=== PATIENT | male | born 1950 | race Two or more races ===

== ENCOUNTER 2019-12-22 09:45 | Inpatient (IN) | payer MEDICARE, OTHER ==
--- NOTE | 2019-12-18 14:34 | Diagnostic Imaging Report ---
Exam: CHEST 2 VIEWS Date: 12/18/2019 2:30 PM INDICATION: ^[id number] ^1416 ^PRE-OP Comparison: None FINDINGS: Lines/Tubes:None Lungs:The lungs are well inflated. No focal consolidation or pulmonary edema. Pleura:No pleural effusion. No pneumothorax. Heart/Mediastinum:The cardiomediastinal silhouette is normal in size and contour. Bones/Soft Tissues: No acute osseous abnormality. Mild multilevel degenerative changes of the spine are noted. Upper abdomen: Negative for free air underneath the hemidiaphragm.. IMPRESSION: Negative for acute intrathoracic process. Signed by: Curtis Saldaña MD on 12/18/2019 2:30 PM
[2019-12-18 14:42] LABS: BASOPHILS # (AUTO) 0.1 (0.0-0.1); BASOPHILS % 0.5 % (0.0-1.0); EOSINOPHILS # (AUTO) 0.5 (0.0-0.4); EOSINOPHILS % 4.5 % (0.0-6.0); HEMATOCRIT 39.1 % (38.2-49.6); HEMOGLOBIN 11.8 g/dL (14.0-18.0); LYMPHOCYTES # (AUTO) 3.2 (1.0-3.2); LYMPHOCYTES % 31.4 % (18.0-39.1); MEAN CORPUSCULAR HEMOGLOBIN 25.4 pg (28-32); MEAN CORPUSCULAR HGB CONC 30.2 g/dL (31-35); MEAN CORPUSCULAR VOLUME 84.1 fL (81-99); MONOCYTES # (AUTO) 0.6 (0.2-0.8); MONOCYTES % 5.8 % (4.4-11.3); NEUTROPHILS # (AUTO) 5.8 (2.1-6.9); NEUTROPHILS % 57.3 % (38.7-80.0); PLATELET COUNT 264 x10e3/uL (140-360); RED BLOOD COUNT 4.65 x10e6/uL (4.3-5.7); RED CELL DISTRIBUTION WIDTH 13.7 % (11.7-14.4)
[2019-12-18 14:59] LABS: ANION GAP 14.1 mmol/L (8-16); BLOOD UREA NITROGEN 20 mg/dL (7-26); BUN/CREATININE RATIO 17 (6-25); CALCIUM 9.1 mg/dL (8.4-10.2); CARBON DIOXIDE 26 mmol/L (22-29); CHLORIDE 102 mmol/L (98-107); CREATININE, SERUM 1.17 mg/dL (0.72-1.25); EST GLOMERULAR FILTRATION RATE > 60 ML/MIN (60-); GLUCOSE 142 mg/dL (74-118); POTASSIUM 4.1 mmol/L (3.5-5.1); SODIUM 138 mmol/L (136-145)
[~2019-12-22 09:45] MED LIST: ALLOPURINOL100 MG PO; ASPIRIN81 MG; ATORVASTATIN CA10 MG PO; BENICAR20 MG PO; CENTRUM SILVER1 EAC6; FERROUS SULFAT325 MG; FINASTERIDE5 MG PO; FLECTOR1 EACH; FLOMAX0.4 MG PO; FOLIC ACID; METFORMIN HCL500 MG PO; METOPROLOL SUCC25 MG; MOBIC15 MG PO; PROTONIX20 MG PO; SIMETHICONE80 MG PO; SPIRONOLACTONE25 MG PO; ZOLOFT50 MG
[2019-12-22] MEDS ORDERED: CEFAZOLIN SOD 1 GM/NS 50ML 50 ML IV ONE (10:18)
[2019-12-22] MEDS ORDERED: BUPIVACAINE 0.25% 30ML SDV INJ ONE (10:38)
[2019-12-22] MEDS ORDERED: ONDANSETRON HCL INJ 2MG/ML 2ML 2 MG/ML VIAL IV PRN (10:45)
[2019-12-22] MEDS ORDERED: MORPHINE SULFATE 2 MG/ML SYR 1ML IV PRN (10:45)
[2019-12-22] MEDS: LACTATED RINGER'S 1,000 ML IV SCH ×2 (10:45→18:45)
[2019-12-22] MEDS ORDERED: SCOPOLAMINE 1.5 MG PATCH TOP SCH (10:45)
[2019-12-22] MEDS ORDERED: LIDOCAINE HCL 2% LOCAL INJ 5 ML SDV VIAL INJ ONE (12:55)
[2019-12-22] MEDS ORDERED: SEVOFLURANE INHAL SOLN 250 ML PEN BTL ONE (12:55)
[2019-12-22] MEDS ORDERED: NEOSTIGMINE 1 MG/ML 10ML VIAL ONE (12:55)
[2019-12-22] MEDS ORDERED: GLYCOPYRROLATE INJ 0.2 MG/ML VIAL ONE (12:55)
[2019-12-22] MEDS ORDERED: PROPOFOL IV EMULSION 10 MG/ML 20 ML VIAL ONE (12:55)
[2019-12-22] MEDS ORDERED: LIDOCAINE HCL 2% JELLY 5 ML TUBE ONE (12:55)
[2019-12-22] MEDS ORDERED: ROCURONIUM BROMIDE 10 MG/ML 5ML VIAL IV ONE (12:55)
[2019-12-22] MEDS ORDERED: ONDANSETRON HCL INJ 2MG/ML 2ML 2 MG/ML VIAL ONE ×2 (12:55→13:57)
[2019-12-22] MEDS ORDERED: DEXAMETHASONE SOD PHOS INJ 4 MG/ML VIAL ONE (12:55)
[2019-12-22] MEDS ORDERED: FENTANYL CITRATE/PF 100MCG/2 ML INJ ONE ×2 (13:04→13:27)
[2019-12-22] MEDS ORDERED: MIDAZOLAM HCL 2 MG/2 ML VIAL ONE (13:04)
[2019-12-22] MEDS ORDERED: MORPHINE SULFATE 2 MG/ML SYR 1ML ONE (13:53)
[2019-12-22] MEDS ORDERED: HYDROMORPHONE 1MG/1ML INJ ONE (14:07)
--- OUTSIDE RECORDS SUMMARY | 2019-12-22 14:26 | XMS REPORT | Continuity of Care Document ---
Author Author [facility] t Organization [facility] Address [address] [place] [address] Dr. Garcia [address] [place] [phone] Phone Unavailable Care Team Providers Care Realtime Court Reporter Name Role Phone Ed CHANDLER Attphys Unavailable Problems This patient has no known problems. Allergies, Adverse Reactions, Alerts This patient has no known allergies or adverse reactions. Medications This patient has no known medications. Procedures This patient has no known procedures. Results Test Description Test Time Test Comments Results Result Comments Source CHEST 2 VIEWS 2019-12-18 14:30:00 [place] [address] Patient Name: DEANN FERREIRA MR #: [id number] : 1950 Age/Sex: 69/M Req #: [id number] Adm Physician: Ordered by: AGUSTÍN CHANDLER MD Report #: [id number] Location: OR Room/Bed: Procedure: [id number] DX/CHEST 2 VIEWS Exam Date: 12/18/19 Exam Time: 1416 REPORT STATUS: Signed Exam: CHEST 2 VIEWS Date: 12/18/2019 2:30 PM INDICATION: [id number] 1416 PRE-OP Comparison: None FINDINGS: Lines/Tubes:None Lungs:The lungs are well inflated. No focal consolidation or pulmonary edema. Pleura:No pleural effusion. No pneumothorax. Heart/Mediastinum:The cardiomediastinal silhouette is normal in size and contour. Bones/Soft Tissues: No acute osseous abnormality. Mild multilevel degenerative changes of the spine are noted. Upper abdomen: Negative for free air underneath the hemidiaphragm.. IMPRESSION: Negative for acute intrathoracic process. Signed by: Stanley Saldaña MD on 12/18/2019 2:30 PM Dictated By: STANLEY SALDAÑA MD 1430 Transcribed By: JAYLON on 12/18/19 1430 COPY TO: AGUSTÍN CHANDLER MD
[2019-12-22] MEDS ORDERED: PROMETHAZINE HCL (IM) 25 MG/ML VIAL IM ONE (14:38)
[2019-12-22] MEDS ORDERED: METOCLOPRAMIDE HCL 10 MG/2ML VIAL ONE (14:38)
[2019-12-22 17:26] VITALS: BP 162/66
--- NOTE | 2019-12-22 18:00 | NUR ---
PHONE REPORT RECEIVED FROM PACU NURSE. PATIENT RECEIVED LYING IN BED IN NO ACUTE DISTRESS. PATIENT SPEAKS PRIMARILY PALOMA AND HIS SON, CHITO, IS LOCATED AT BEDSIDE FOR TRANSLATION. PATIENT WAS EDUCATED ON FALL RISK PRECAUTIONS AND VERBALIZED UNDERSTANDING. CALL LIGHT AND BELONGINGS PLACED NEARBY. WILL CONTINUE TO MONITOR. YUVAL DALE-[phone]
--- NOTE | 2019-12-22 18:45 | NUR ---
REPORT GIVEN TO RECEIVING NURSE
--- NOTE | 2019-12-22 19:30 | NUR ---
BEDSIDE SHIFT REPORT RECEIVED FROM DAY RN.PT IS ALERT AND ORIENTED X3. LUNGS CLEAR. RESPIRATION EVEN AND UNLABORED. TROCHAR SITE ALL 5 DRY AND INTACT.20 G RT AC PIV INFUSING (LR ) AT 125 ML/HR, PT VOIDING WITHOUT DIFFICULT'CALL LIGHT WITHIN REACH.BED IN LOW POSITION..
--- NOTE | 2019-12-22 19:34 | Operative Report ---
DATE OF PROCEDURE: 12/22/2019 SURGEON: Chandan Marin MD PREOPERATIVE DIAGNOSES: 1. Morbid obesity, BMI 40. 2. Hypertension. POSTOPERATIVE DIAGNOSES: 1. Morbid obesity, BMI 40. 2. Hypertension. PREOPERATIVE INDICATION: Treat disease, prevent complications related to comorbid conditions of obesity. PROCEDURE: Laparoscopic vertical sleeve gastrectomy. ANESTHESIA: General. RECREATION FACILITIES SUPERVISOR: Rufino Tate, surgical pathologist (needed due to complexity of case). FLUIDS: As per anesthesia. ESTIMATED BLOOD LOSS: 30 mL. DRAINS: None. COMPLICATIONS: None. SPECIMENS: Partial stomach. GRAFTS: None. FINDINGS: 1. Normal upper GI anatomy. 2. Negative intraoperative leak test. PROCEDURE IN DETAIL: The patient was brought to the operating room and was intubated under general endotracheal anesthesia. He was sterilely prepped and draped in the usual fashion. A preprocedure pause was performed identifying the patient, the use of perioperative antibiotics, intended procedure, and staff surgeon. After gaining access via a 5 mm left subcostal incision, I then placed four additional trocars and the abdomen was insufflated via the Veress needle. Liver retractor was used to expose the stomach. I mobilized the greater curvature of stomach from about 4 cm proximal to the pyloric valve to the left roger of the diaphragm using the [place] LigaSure device. I then had anesthesia, inserted a 32-Georgian ViSiGi tube along the lesser curvature of stomach. The greater curvature of stomach was resected with multiple firings of a 60 mm Medtronic purple load Covidien stapling device. Once that was done, we submerged the sleeve under saline and a leak test, no leaks were identified. The specimen was removed through the right periumbilical port site. The port site was closed with 0 Vicryl suture using the Aryan-Granado technique. We then verified hemostasis, removed the liver retractor, and desufflated the abdomen. Trocars were removed. Incision sites were closed with 4-0 Monocryl suture in a subcuticular fashion. Dermabond dressings were applied. A 0.25% bupivacaine was used both at the preperitoneal incisional sites. The patient tolerated the procedure well. Type of wound was type 2, clean, contaminated. All surgical sponge and instrument counts were correct. MD SADE Hernandez/ROMAINEL /[id number]
[2019-12-22 20:00] VITALS: BP 156/76
[2019-12-22] MEDS: ENOXAPARIN SOD INJ 40 MG/0.4 ML SYR SC SCH (22:00)
--- NOTE | 2019-12-22 22:43 | Diagnostic Imaging Report ---
EXAMINATION: CHEST XRAY POST PROCEDURE INDICATION: CHEST PAIN S/P LAP GASTRECTOMY COMPARISON: Chest x-ray 12/18/2019 FINDINGS: TUBES and LINES: None. LUNGS: Normal lung volumes. Subtle left basilar haziness. PLEURA: No pleural effusion or pneumothorax. HEART AND MEDIASTINUM: The cardiomediastinal silhouette is unremarkable. BONES AND SOFT TISSUES: No acute osseous lesion. Soft tissues are unremarkable. UPPER ABDOMEN: No free air under the diaphragm. Surgical clips at the gastroesophageal junction. IMPRESSION: Subtle left basilar haziness, favor atelectasis versus pneumonia. Signed by: [place] Galvez DO on 12/22/2019 10:39 PM
[2019-12-23] VITALS: BP 147/64
[2019-12-23] MEDS ORDERED: MORPHINE SULFATE 2 MG/ML SYR 1ML IV PRN
[2019-12-23 00:14] LABS: CREATINE KINASE MB 1.9 ng/mL (0-5.0)
[2019-12-23 04:00] VITALS: BP 149/72
[2019-12-23] MEDS: LACTATED RINGER'S 1,000 ML IV SCH ×2 (04:44→08:34)
[2019-12-23 05:30] LABS: BASOPHILS % 0.1 % (0.0-1.0); HEMATOCRIT 39.8 % (38.2-49.6); HEMOGLOBIN 12.2 g/dL (14.0-18.0); LYMPHOCYTES # (AUTO) 1.4 (1.0-3.2); LYMPHOCYTES % 12.5 % (18.0-39.1); MEAN CORPUSCULAR HEMOGLOBIN 24.7 pg (28-32); MEAN CORPUSCULAR HGB CONC 30.7 g/dL (31-35); MEAN CORPUSCULAR VOLUME 80.7 fL (81-99); MONOCYTES # (AUTO) 0.6 (0.2-0.8); MONOCYTES % 5.2 % (4.4-11.3); NEUTROPHILS # (AUTO) 9.3 (2.1-6.9); NEUTROPHILS % 81.7 % (38.7-80.0); PLATELET COUNT 272 x10e3/uL (140-360); RED BLOOD COUNT 4.93 x10e6/uL (4.3-5.7); RED CELL DISTRIBUTION WIDTH 13.3 % (11.7-14.4)
[2019-12-23 05:47] LABS: ALANINE AMINOTRANSFERASE 20 IU/L (0-55); ALBUMIN 3.8 g/dL (3.5-5.0); ALBUMIN/GLOBULIN RATIO 1.2 (0.8-2.0); ALKALINE PHOSPHATASE 53 IU/L (40-150); ANION GAP 14.5 mmol/L (8-16); BLOOD UREA NITROGEN 20 mg/dL (7-26); BUN/CREATININE RATIO 19 (6-25); CARBON DIOXIDE 24 mmol/L (22-29); CHLORIDE 104 mmol/L (98-107); CREATININE, SERUM 1.07 mg/dL (0.72-1.25); EST GLOMERULAR FILTRATION RATE > 60 ML/MIN (60-); GLUCOSE 114 mg/dL (74-118); MAGNESIUM 1.9 MG/DL (1.3-2.1); PHOSPHORUS 3.1 MG/DL (2.3-4.7); POTASSIUM 4.5 mmol/L (3.5-5.1); SODIUM 138 mmol/L (136-145)
[2019-12-23 06:35] LABS: CREATINE KINASE MB 1.8 ng/mL (0-5.0)
[2019-12-23] MEDS ORDERED: HYDROCODONE/APAP 7.5MG-325MG 1 EA TAB PO PRN (07:30)
--- NOTE | 2019-12-23 08:16 | NUR ---
PROGRESS NOTE S: No major complaints O: AF VSS, Gen- no acute distress, Abdomen- soft, incisions c/d/i A/P: POD s/p Lap sleeve gastrectomy -Clears, ambulate, IS, OOB to chair -Ok to d/c home if approved by hospitalist service -F/u in 1-2 weeks -Diet instructions provided to patient Christina Mairn MD
[2019-12-23] MEDS: ENOXAPARIN SOD INJ 40 MG/0.4 ML SYR SC SCH (08:34)
[2019-12-23 08:37] VITALS: BP 141/65
[2019-12-23 08:46] VITALS: BP 141/65
[2019-12-23 11:00] VITALS: BP 154/69
[2019-12-23] MEDS ORDERED: ONDANSETRON HCL 4 MG ORAL DISINTEGRATING TAB PO PRN (11:00)
--- NOTE | 2019-12-23 11:03 | NUR ---
Nutrition Screen Note RD Recommendation for Physician: - ADAT to full liquids Plan of Care: RD following, monitoring for tolerance and adequacy Nutrition reason for involvement: MD Consult- diet education Primary Diagnose(s): lap sleeve gastrectomy PMH: obesity Ht: 68 in Wt: no wt available BMI: not available IBW: [address] Assessment: (12/22) Pt seen per MD consult for diet education s/p lap sleeve gastrectomy. Pt educated on progression of diet- clear liquids, full liquids, and pureed. Advised to avoid all sugars, carbonation, gum, and use of straws. Pt educated on protein supplements and MVI/mineral rec's. All questions and concerns addressed at time of visit, diet education materials provided. Chart reviewed. Labs and meds reviewed. Current Diet: bariatric CLD Malnutrition Evaluation (12/23/19) The patient does not meet criteria for a specified degree of malnutrition at this time. Will re-evaluate at follow-up as appropriate. Diet Education Needs Assessment: Diet education indicated, pt receptive and education provided 12/22. Learner(s): pt Barriers: minimal language barrier, pt to share diet education with son Cultural/Language Modifications: none Readiness: ready Method: handouts, discussion Topics: diet progression s/p gastric bypass, supplements Understanding/Compliance: fair Diet tolerance: tolerating CLD Nutrition Care Level: low Signed: Bethany Humphries RD, LD, [facility]
--- NOTE | 2019-12-23 11:26 | NUR ---
Patient received discharge order from Dr. Yanes once Dr. Samson cleared patient. Tone Regulator also educated patient. Patient and son were given discharge instructions, follow up plan, education, and both verbalized understanding. Patient and son had no other issues or questions and repeated back what the plan was. Patient IV removed at 1100 and covered with a C/D/I dressing. Patient tele removed and returned to telemetry. Patient wheeled to son's car at 1120.
--- NOTE | 2019-12-23 14:00 | Discharge Summary ---
FINAL DISCHARGE DIAGNOSES: 1. Status post laparoscopic sleeve gastrectomy performed on 12/22/2019, by Dr. Marin, Bariatric surgery. 2. Type 2 diabetes. 3. Morbid obesity. 4. Hypertension. CONSULTANTS: Bariatric surgery. PHYSICAL EXAMINATION: VITAL SIGNS: Temperature 97.8, pulse 82, respiratory rate 17, blood pressure 141/65, pulse ox 100% on room air. LABORATORY FINDINGS: Show white count 11, hemoglobin 12, hematocrit was 39.8, platelets of 272. Chemistry; sodium 138, potassium 4.5, chloride 104, bicarb 24, anion gap of 14, BUN is 20, creatinine 1.07, glucose 114, calcium 9, phosphorus 3.1, magnesium 1.9, total bilirubin 0.4, AST 20, ALT 20, alkaline phosphatase 53, troponins were all negative. Total protein 7, albumin was 3.8. Troponins were negative x2. EKG shows no acute findings. Normal sinus rhythm. SEROLOGY: Coronavirus nondetected. MICROBIOLOGY: None. IMAGING STUDIES: Chest x-ray shows subtle left basilar haziness, favor atelectasis versus pneumonia. HOSPITAL COURSE: A 69-year-old male came in for status post laparoscopic sleeve gastrectomy performed by Bariatric surgery on 12/22/2019. The patient did well postoperatively with no complaints. He was tolerating diet well with no issues. The patient will be discharged to home as per Bariatric surgery and we will continue with home medications except for oral metformin which the patient was educated at bedside. The patient was already on multivitamin that was provided to the patient one week prior to the surgery and he has all his home medications at this time. The patient was doing well at baseline with no complaints. All labs were discussed above, found to be within normal range. EKG shows no acute findings. The patient has no complaints of any chest pain, any abdominal pain, nausea, or vomiting. The patient was stable for discharge to home. The patient was cleared for discharge by Bariatric surgery. On the day of discharge, vital signs were stable. Labs reviewed and stable. The patient was seen and evaluated, examined thoroughly on the day of discharge. No other complaints. The patient verbalized understanding and agrees to plan of care to follow up accordingly as an outpatient with the primary care physician in 1 week and Bariatric surgery in 1 to 2 weeks' time. MEDICATIONS: See med reconciliation form except hold metformin upon discharge. DISPOSITION: Home. CONDITION: Stable. DIET: Heart healthy. In the event of any worsening symptoms, the patient was advised to come back to the ED for further evaluation. Discharge summary took greater than 35 minutes. MD TRI Cardona/MODJarad /[id number]
--- NOTE | 2019-12-23 16:35 | History and Physical ---
REASON FOR ADMISSION: Status post laparoscopic vertical sleeve gastrectomy. HISTORY OF PRESENT ILLNESS: This is a 69-year-old male with history of diabetes, hypertension, morbidly obese, came in for an elective procedure performed by Dr. Marin, Bariatric surgeon in which the patient underwent laparoscopic vertical sleeve gastrectomy performed on 12/22/2019. The patient did well postoperatively. He had no complaints. Pain was well controlled. He was tolerating diet well. Denies any cough, congestion, fever or any other complaints. No reports of any chest pain. No shortness of breath. The patient is seen and evaluated at bedside on the medical floor. He is currently doing well with no other issues at this time. REVIEW OF SYSTEMS: Pertinent positives, morbid obesity. The rest of 14-point review of systems are reviewed with patient and are negative. ALLERGIES: SULFA. HOME MEDICATIONS: Allopurinol, aspirin, atorvastatin, iron tablets, finasteride, metoprolol, olmesartan, Protonix, citrulline, simethicone, Aldactone, tamsulosin, multivitamin, folic acid. PAST MEDICAL HISTORY: Type 2 diabetes, morbidly obese, hypertension. PAST SURGICAL HISTORY: Just recent laparoscopic sleeve gastrectomy. PAST FAMILY HISTORY: Hypertension, diabetes. SOCIAL HISTORY: No drugs. No alcohol. Does not smoke. Good social support. PHYSICAL EXAMINATION: VITAL SIGNS: Temperature is 97.8, pulse 82, respiratory rate is 17, blood pressure 141/65, pulse ox 100% on room air. GENERAL: No acute distress. Alert and oriented x3. Cooperative on examination. PULMONARY: Clear to auscultation bilaterally. No wheezing, rales, or rhonchi. No crackles appreciated. CARDIOVASCULAR: Positive S1 and S2. No murmurs, rubs, or gallops appreciated. ABDOMEN: Soft, nondistended, and nontender to palpation. Bowel sounds present. MUSCULOSKELETAL: Strength is 5/5 throughout. No evidence of any muscle deficits on examination. SKIN: Intact. Warm to touch. Good cap refill. PSYCHIATRIC: Normal affect and mood. LABORATORY FINDINGS: Show white count was 10.1, hemoglobin 11.8, hematocrit 39, platelets of 264. Chemistry reviewed. Sodium 138, potassium 4.5, chloride 104, bicarb 24, anion gap of 14, BUN is 20, creatinine 1.07, glucose 114, calcium 9, phosphorus 3.1, magnesium 1.9, total bilirubin 0.4, AST is 20, ALT 20, alkaline phosphatase 53, troponins are negative, albumin was 3.8. Serology; luciano virus not detected. IMAGING STUDIES: Chest x-ray shows subtle left basilar haziness, favor atelectasis versus pneumonia. IMPRESSION: 1. Status post laparoscopic sleeve gastrectomy performed on 12/22/2019, by Bariatric surgery. 2. Hypertension. 3. Type 2 diabetes. 4. Benign prostatic hypertrophy. PLAN: At this time, continue with postop care. He is on clear liquid diet. Follow diet as per Bariatric surgery. Resume all home medications. Hold metformin. Lovenox for DVT prophylaxis. Encourage ambulation. Monitor overnight. Once cleared by surgery, the patient can go home. It seems that the patient will be going home per Bariatric surgery recommendations. MD TRI Cardona/ZENIA /[id number]
== END 2019-12-23 11:20 | disposition home or self-care (01) | DRG 621 ==
LOC: OR 09:45 → PACU V 14:13 → MED/SURG 17:01
PROVIDERS: ADMIT Internal Medicine; ATTEND Internal Medicine
PROC: 0DB64Z3 Excision of Stomach, Percutaneous Endoscopic Approach, Vertical (ICD-10-PCS; principal; 2019-12-22 12:00)
DX: E66.01 Morbid (severe) obesity due to excess calories (principal); Z68.41 Body mass index [BMI] 40.0-44.9, adult; I10 Essential (primary) hypertension; E11.9 Type 2 diabetes mellitus without complications; N40.0 Benign prostatic hyperplasia without lower urinary tract symptoms; Z11.59 Encounter for screening for other viral diseases
CPT/HCPCS: 36415; 71045; 71046; 80048; 80053; 82550; 82553; 82948; 83735; 84100; 84484; 85025; 93005; 96361; J0690; J1100; J1170; J1650; J2001; J2250; J2270; J2405; J2550; J2710; J2765; J3010; J7121; U0002

== ENCOUNTER 2021-02-03 15:35 | Emergency (ER) | payer MEDICARE, OTHER ==
[~2021-02-03] VITALS: Ht 165.1 cm; Wt 104.3 kg
[2021-02-03] MEDS ORDERED: CLONIDINE HCL 0.1 MG TAB ONE (16:37)
[2021-02-03] MEDS ORDERED: CLONIDINE HCL 0.1 MG TAB PO ONE (16:45)
[2021-02-03] MEDS ORDERED: CARVEDILOL3.125 MG PO (18:01)
== END 2021-02-03 18:12 | disposition home or self-care (01) ==
LOC: FSED 15:38
DX: I10 Essential (primary) hypertension (principal); R51.9 Headache, unspecified; E78.5 Hyperlipidemia, unspecified; M10.9 Gout, unspecified; Z96.651 Presence of right artificial knee joint; Z85.46 Personal history of malignant neoplasm of prostate
CPT/HCPCS: 99284

== ENCOUNTER → 2021-07-13 | Outpatient (CLI) | payer MEDICARE, OTHER ==
[~2021-07-13] MED LIST changes: +CARVEDILOL3.125 MG PO
== END ==
LOC: RAD 15:18
PROVIDERS: ATTEND Internal Medicine
DX: Z96.651 Presence of right artificial knee joint (principal)